=== PATIENT | female | born 1980 | race Caucasian/White ===

== ENCOUNTER 2020-02-15 21:30 | Inpatient (IN) | payer OTHER ==
[~2020-02-15] VITALS: Ht 157.5 cm; Wt 49.9 kg
[~2020-02-15 21:30] MED LIST: ABAC1TAB3 PO; Bisacodyl PO; DARU800T PO; Docusate Sodium PO; LACT10SO PO; METH5SOL PO; NORV1 PO
[2020-02-15] MEDS ORDERED: ACETAMINOPHEN 325MG TABLET PO STA (22:42)
[2020-02-16] MEDS ORDERED: VANCOMYCIN 1 G PREMIX 200 ML IV SCH
[2020-02-16] MEDS ORDERED: PIPERACILLIN/TAZOBACTAM 3.375GM/50ML PREMIX IV ONE
[2020-02-16 01:31] LABS: D-DIMER 3.23 mg/L FEU (<0.50); INR 0.9; PARTIAL THROMBOPLASTIN TIME 28.1 sec (23.4-31.0)
[2020-02-16 01:34] LABS: CHLORIDE 113 mEq/L (98-107)
[2020-02-16 01:44] LABS: CREATINE KINASE 28 IU/L (26-192)
[2020-02-16 02:16] LABS: BASOPHILS % 0.1 % (0.0-2.0); HEMATOCRIT. 25.4 % (36.0-48.0); HEMOGLOBIN. 8.1 g/dL (12.0-16.0); LYMPHOCYTES % 8.6 % (20.0-50.0); MEAN CORPUSCULAR HEMOGLOBIN 28.8 pg (28.0-32.0); MEAN CORPUSCULAR VOLUME 90.1 fL (81.0-99.0); MEAN PLATELET VOLUME 12.2 fl (7.4-10.4); MONOCYTES % 5.3 % (2.0-8.0); RED BLOOD CELL COUNT 2.82 mill/uL (4.2-5.4); RED CELL DISTRIBUTION WIDTH 21.3 % (11.6-14.6)
[2020-02-16 03:02] LABS: CLARITY URINE CLEAR (CLEAR); COLOR URINE YELLOW (YELLOW); KETONES URINE NEGATIVE (NEGATIVE); LEUKOCYTE ESTERASE URINE NEGATIVE (NEGATIVE); NITRITE URINE NEGATIVE (NEGATIVE); OCCULT BLOOD URINE NEGATIVE (NEGATIVE); PH URINE 5.5 (4.5-8.0); PROTEIN URINE 2+ (NEGATIVE); SPECIFIC GRAVITY URINE 1.015 (1.005-1.030)
[2020-02-16] MEDS ORDERED: CEFTRIAXONE 1 G PREMIX 50 ML IV SCH (09:00)
[2020-02-16] MEDS ORDERED: GUAIFENESIN 200MG/10ML SUGAR FREE UDC PO PRN (09:15)
[2020-02-16] MEDS ORDERED: ONDANSETRON HCL 4MG/2ML INJ IV PRN (09:15)
[2020-02-16] MEDS ORDERED: DOCUSATE SODIUM 100MG CAPSULE PO PRN (09:15)
[2020-02-16] MEDS ORDERED: LORAZEPAM 2MG/ML CPJ IV PRN (09:15)
[2020-02-16] MEDS ORDERED: HYDROCODONE/ACETAMINOPHEN 5/325MG TABLET PO PRN (09:15)
[2020-02-16] MEDS ORDERED: AZITHROMYCIN 500 MG in DEXT 5% WATER 250 ML IV SCH ×3 (09:15)
[2020-02-16] MEDS ORDERED: CLONIDINE 0.1MG TABLET PO PRN (09:15)
[2020-02-16] MEDS ORDERED: MORPHINE SULFATE 2 MG/ML CPJ (NOT FOR IM USE) IV PRN (09:15)
[2020-02-16] MEDS ORDERED: MAGNESIUM/ALUMINUM HYDROXIDE/SIMETHICONE 30ML UDC PO PRN (09:15)
[2020-02-16] MEDS ORDERED: ENOXAPARIN 40MG/0.4ML SYR SUBCUT SCH (09:15)
[2020-02-16] MEDS ORDERED: IPRATROPIUM/ALBUTEROL 0.5-3(2.5)MG/3ML NEB NEB PRN (09:15)
[2020-02-16] MEDS ORDERED: NA PHOS,M-B/NA PHOS,DI-BA ENEMA 118ML PR PRN (09:15)
[2020-02-16] MEDS ORDERED: DIPHENHYDRAMINE 50MG/ML VIAL IV PRN (09:15)
[2020-02-16 11:43] LABS: PLATELET 26 x1000/uL (130-400)
[2020-02-16] MEDS ORDERED: CEFTRIAXONE 1 G PREMIX 50 ML IV ONE (15:00)
[2020-02-16] MEDS: METHADONE HCL 10MG TABLET PO SCH (16:00)
[2020-02-16 20:10] VITALS: BP 97/61
[2020-02-16 20:19] VITALS: BP 96/56
[2020-02-16] MEDS: ALBUTEROL 6.7GM HFA INHALER ORI SCH (21:00)
[2020-02-16] MEDS: GUAIFENESIN 600MG ER TABLET PO SCH ×2 (21:00→21:50)
[2020-02-16] MEDS: CEFTRIAXONE 1 G PREMIX 50 ML IV SCH (21:51)
[2020-02-16] MEDS: AZITHROMYCIN 250 MG in DEXT 5% WATER 250 ML IV SCH (22:16)
[2020-02-17] VITALS (7 sets, daily range): BP systolic 80–99; BP diastolic 44–53
[2020-02-17] MEDS: ALBUTEROL 6.7GM HFA INHALER ORI SCH ×2 (03:00→09:00)
[2020-02-17 07:14] LABS: HEMATOCRIT. 24.1 % (36.0-48.0); HEMOGLOBIN. 7.9 g/dL (12.0-16.0); MEAN CORPUSCULAR HEMOGLOBIN 29.5 pg (28.0-32.0); RED BLOOD CELL COUNT 2.68 mill/uL (4.2-5.4); RED CELL DISTRIBUTION WIDTH 20.8 % (11.6-14.6)
[2020-02-17 07:31] LABS: CHLORIDE 109 mEq/L (98-107)
[2020-02-17 07:46] LABS: LDL CHOLESTEROL 19 mg/dL (5-100); T4 FREE 1.11 ng/dL (0.76-1.46)
[2020-02-17 07:47] LABS: HDL CHOLESTEROL 21 mg/dL (40-59)
[2020-02-17] MEDS: METHADONE HCL 10MG TABLET PO SCH (09:00)
[2020-02-17] MEDS ORDERED: ASPIRIN 81MG EC TABLET PO SCH (09:00)
[2020-02-17 09:06] LABS: ABSOLUTE LYMPHOCYTES 0.4 x10E3/uL (0.7-3.1); ABSOLUTE MONOCYTES 0.1 x10E3/uL (0.1-0.9); BASOPHILS 0 % (Not Estab.); HEMATOCRIT 27.3 % (34.0-46.6); HEMATOLOGY COMMENT Note: (.); HEMOGLOBIN 8.6 g/dL (11.1-15.9); LYMPHOCYTES 9 % (Not Estab.); MEAN CORPUSCULAR HEMOGLOBIN 28.6 pg (26.6-33.0); MEAN CORPUSCULAR HGB CONC. 31.5 g/dL (31.5-35.7); MEAN CORPUSCULAR VOLUME 91 fL (79-97); MONOCYTES 3 % (Not Estab.); NEUTROPHILS 80 % (Not Estab.); PLATELETS 37 x10E3/uL (150-450); RBC 3.01 x10E6/uL (3.77-5.28); RED CELL DISTRIBUTION WIDTH 21.2 % (11.7-15.4); WBC 4.6 x10E3/uL (3.4-10.8)
[2020-02-17 09:22] LABS: PLATELET 29 x1000/uL (130-400)
[2020-02-17] MEDS: GUAIFENESIN 600MG ER TABLET PO SCH ×2 (09:53→22:03)
[2020-02-17 10:47] LABS: PLATELET ESTIMATE MARKEDLY DECREASED
[2020-02-17 11:04] LABS: *BARBITURATES SCREEN URINE NEGATIVE (NEGATIVE); *BENZODIAZEPINES SCREEN URINE NEGATIVE (NEGATIVE)
[2020-02-17 11:05] LABS: *COCAINE SCREEN URINE NEGATIVE (NEGATIVE); CANNABINOID URINE SCREEN NEGATIVE (NEGATIVE); OPIATES URINE SCREEN NEGATIVE (NEGATIVE); PHENCYCLIDINE URINE SCREEN NEGATIVE (NEGATIVE)
[2020-02-17 11:20] LABS: *AMPHETAMINES SCREEN URINE PRESUMTIVE POSITIVE (NEGATIVE); METHADONE URINE SCREEN PRESUMTIVE POSITIVE (NEGATIVE)
[2020-02-17 14:09] LABS: % CD 3 POS. LYMPHOCYTES 78.1 % (57.5-86.2); % CD 4 POS. LYMPHOCYTES 4.9 % (30.8-58.5); % CD 8 POS. LYMPH 72.8 % (12.0-35.5); ABSOLUTE CD 3 312 /uL (622-2402); ABSOLUTE CD 4 HELPER 20 /uL (359-1519); ABSOLUTE CD 8 SUPPRESSOR 291 /uL (109-897); CD4/CD8 RATIO 0.07 (0.92-3.72)
[2020-02-17] MEDS: CEFTRIAXONE 1 G PREMIX 50 ML IV SCH (22:03)
[2020-02-17] MEDS: IPRATROPIUM/ALBUTEROL 0.5-3(2.5)MG/3ML NEB HHN SCH (22:08)
[2020-02-17] MEDS: AZITHROMYCIN 250 MG in DEXT 5% WATER 250 ML IV SCH (22:44)
[2020-02-18] MEDS: IPRATROPIUM/ALBUTEROL 0.5-3(2.5)MG/3ML NEB HHN SCH ×4 (02:27→21:20)
[2020-02-18 04:00] VITALS: BP 88/50
[2020-02-18 08:00] VITALS: BP 98/51
[2020-02-18] MEDS: METHADONE HCL 10MG TABLET PO SCH (09:28)
[2020-02-18] MEDS: GUAIFENESIN 600MG ER TABLET PO SCH ×2 (09:29→21:56)
[2020-02-18] MEDS: ACETAMINOPHEN 325MG TABLET PO PRN (09:31)
[2020-02-18 12:40] LABS: MEAN CORPUSCULAR HEMOGLOBIN 29.6 pg (28.0-32.0); MEAN CORPUSCULAR VOLUME 89.4 fL (81.0-99.0); MEAN PLATELET VOLUME 11.9 fl (7.4-10.4); RED BLOOD CELL COUNT 2.33 mill/uL (4.2-5.4); RED CELL DISTRIBUTION WIDTH 20.4 % (11.6-14.6)
[2020-02-18 12:45] LABS: HEMATOCRIT. 20.8 % (36.0-48.0); HEMOGLOBIN. 6.9 g/dL (12.0-16.0)
[2020-02-18 12:46] LABS: PLATELET 33 x1000/uL (130-400)
[2020-02-18 13:18] LABS: PLATELET ESTIMATE MARKEDLY DECREASED
[2020-02-18] MEDS: SODIUM CHLORIDE 0.9% 1,000 ML IV SCH (15:16)
[2020-02-18] MEDS: MIDODRINE HCL 2.5MG TABLET PO SCH ×2 (15:17→17:34)
[2020-02-18 16:00] VITALS: BP 96/51
[2020-02-18 20:00] VITALS: BP 86/46
[2020-02-18] MEDS ORDERED: SULFAMETHOXAZOLE/TRIMETHOPRIM 800/160MG TABLET PO SCH (21:00)
[2020-02-18] MEDS: CEFTRIAXONE 1 G PREMIX 50 ML IV SCH (21:57)
[2020-02-18] MEDS: AZITHROMYCIN 250 MG in DEXT 5% WATER 250 ML IV SCH (22:32)
[2020-02-19] VITALS (10 sets, daily range): BP systolic 91–111; BP diastolic 52–76
[2020-02-19] MEDS: SODIUM CHLORIDE 0.9% 1,000 ML IV SCH ×2 (00:09→13:01)
[2020-02-19] MEDS: IPRATROPIUM/ALBUTEROL 0.5-3(2.5)MG/3ML NEB HHN SCH ×4 (02:00→21:15)
[2020-02-19] MEDS: ACETAMINOPHEN 325MG TABLET PO PRN (05:09)
[2020-02-19 07:27] LABS: MEAN CORPUSCULAR HEMOGLOBIN 29.4 pg (28.0-32.0); MEAN CORPUSCULAR VOLUME 90.1 fL (81.0-99.0); MEAN PLATELET VOLUME 11.1 fl (7.4-10.4); RED CELL DISTRIBUTION WIDTH 20.1 % (11.6-14.6)
[2020-02-19 07:30] LABS: HEMATOCRIT. 20.7 % (36.0-48.0); HEMOGLOBIN. 6.8 g/dL (12.0-16.0); PLATELET 37 x1000/uL (130-400)
[2020-02-19] MEDS ORDERED: SODIUM POLYSTYRENE SULFONATE 15 G/60 ML BOT PO NR (08:15)
[2020-02-19] MEDS: GUAIFENESIN 600MG ER TABLET PO SCH ×2 (10:37→21:52)
[2020-02-19] MEDS: FLUCONAZOLE 100MG TABLET PO SCH (10:37)
[2020-02-19] MEDS: METHADONE HCL 10MG TABLET PO SCH (10:40)
[2020-02-19] MEDS: MIDODRINE HCL 2.5MG TABLET PO SCH ×3 (10:40→16:51)
[2020-02-19] MEDS: NYSTATIN 100,000 UNITS/ML 5ML UDC SSW SCH ×4 (10:41→21:52)
[2020-02-19 17:07] LABS: PLATELET ESTIMATE MARKEDLY DECREASED
[2020-02-19 18:49] LABS: HEMATOCRIT 25.8 % (36.0-48.0); HEMOGLOBIN 8.3 g/dL (12.0-16.0)
[2020-02-19] MEDS: CEFTRIAXONE 1 G PREMIX 50 ML IV SCH (21:53)
[2020-02-19] MEDS: AZITHROMYCIN 250 MG in DEXT 5% WATER 250 ML IV SCH (21:53)
[2020-02-20] MEDS: IPRATROPIUM/ALBUTEROL 0.5-3(2.5)MG/3ML NEB HHN SCH ×4 (00:38→22:01)
[2020-02-20 00:47] VITALS: BP 100/49
[2020-02-20] MEDS: SODIUM CHLORIDE 0.9% 1,000 ML IV SCH ×2 (04:39→16:52)
[2020-02-20 04:45] VITALS: BP 97/55
[2020-02-20 08:00] VITALS: BP 101/67
[2020-02-20 08:26] LABS: MEAN CORPUSCULAR HEMOGLOBIN 30.2 pg (28.0-32.0); MEAN CORPUSCULAR VOLUME 90.4 fL (81.0-99.0); MEAN PLATELET VOLUME 10.8 fl (7.4-10.4); RED BLOOD CELL COUNT 2.66 mill/uL (4.2-5.4)
[2020-02-20 08:41] LABS: PLATELET 46 x1000/uL (130-400)
[2020-02-20] MEDS: ATOVAQUONE 750MG/5ML PACKET PO SCH (08:58)
[2020-02-20] MEDS: GUAIFENESIN 600MG ER TABLET PO SCH ×2 (08:59→21:36)
[2020-02-20] MEDS: METHADONE HCL 10MG TABLET PO SCH (09:01)
[2020-02-20] MEDS: MIDODRINE HCL 2.5MG TABLET PO SCH ×3 (09:01→16:59)
[2020-02-20] MEDS: FLUCONAZOLE 100MG TABLET PO SCH (09:02)
[2020-02-20 12:00] VITALS: BP 98/59
[2020-02-20] MEDS: NYSTATIN 100,000 UNITS/ML 5ML UDC SSW SCH ×4 (12:47→21:36)
[2020-02-20 16:00] VITALS: BP 93/52
[2020-02-20 16:04] LABS: PLATELET ESTIMATE DECREASED
[2020-02-20 20:00] VITALS: BP 105/58
[2020-02-20] MEDS: CEFTRIAXONE 1 G PREMIX 50 ML IV SCH (21:36)
[2020-02-21] VITALS: BP 101/55
[2020-02-21 04:00] VITALS: BP 109/63
[2020-02-21] MEDS: IPRATROPIUM/ALBUTEROL 0.5-3(2.5)MG/3ML NEB HHN SCH ×3 (04:26→16:00)
[2020-02-21] MEDS: SODIUM CHLORIDE 0.9% 1,000 ML IV SCH ×2 (04:46→18:25)
[2020-02-21] MEDS: FLUCONAZOLE 100MG TABLET PO SCH (08:58)
[2020-02-21] MEDS: GUAIFENESIN 600MG ER TABLET PO SCH ×2 (08:58→20:36)
[2020-02-21] MEDS: NYSTATIN 100,000 UNITS/ML 5ML UDC SSW SCH ×4 (08:58→20:36)
[2020-02-21] MEDS: METHADONE HCL 10MG TABLET PO SCH (09:00)
[2020-02-21] MEDS: MIDODRINE HCL 2.5MG TABLET PO SCH ×3 (09:00→18:26)
[2020-02-21] MEDS: ATOVAQUONE 750MG/5ML PACKET PO SCH (09:03)
[2020-02-21 13:41] LABS: HEMATOCRIT. 23.5 % (36.0-48.0); HEMOGLOBIN. 7.8 g/dL (12.0-16.0); MEAN CORPUSCULAR VOLUME 90.9 fL (81.0-99.0); MEAN PLATELET VOLUME 9.3 fl (7.4-10.4); PLATELET 57 x1000/uL (130-400); RED BLOOD CELL COUNT 2.59 mill/uL (4.2-5.4); RED CELL DISTRIBUTION WIDTH 18.9 % (11.6-14.6)
[2020-02-21 14:19] LABS: PLATELET ESTIMATE DECREASED
[2020-02-21 20:00] VITALS: BP 112/65
[2020-02-21] MEDS: CEFTRIAXONE 1 G PREMIX 50 ML IV SCH (20:35)
[2020-02-21] MEDS: METRONIDAZOLE 500MG TABLET PO SCH (20:36)
[2020-02-22] VITALS: BP 125/76
[2020-02-22] MEDS: IPRATROPIUM/ALBUTEROL 0.5-3(2.5)MG/3ML NEB HHN SCH ×3 (00:44→20:58)
[2020-02-22 04:00] VITALS: BP 121/80
[2020-02-22 06:43] LABS: BASOPHILS % 0.4 % (0.0-2.0); EOSINOPHILS % 1.5 % (0.0-5.0); HEMATOCRIT. 26.9 % (36.0-48.0); HEMOGLOBIN. 8.8 g/dL (12.0-16.0); LYMPHOCYTES % 12.4 % (20.0-50.0); MEAN CORPUSCULAR HEMOGLOBIN 30.2 pg (28.0-32.0); MEAN CORPUSCULAR VOLUME 92.2 fL (81.0-99.0); MEAN PLATELET VOLUME 10.5 fl (7.4-10.4); MONOCYTES % 10.8 % (2.0-8.0); NEUTROPHILS % 74.9 % (40.0-76.0); PLATELET 69 x1000/uL (130-400); RED BLOOD CELL COUNT 2.91 mill/uL (4.2-5.4); RED CELL DISTRIBUTION WIDTH 19.4 % (11.6-14.6)
[2020-02-22] MEDS: ATOVAQUONE 750MG/5ML PACKET PO SCH (07:03)
[2020-02-22 08:00] VITALS: BP 116/76
[2020-02-22] MEDS: SODIUM CHLORIDE 0.9% 1,000 ML IV SCH ×2 (08:20→20:59)
[2020-02-22] MEDS: METRONIDAZOLE 500MG TABLET PO SCH ×2 (08:44→20:32)
[2020-02-22] MEDS: GUAIFENESIN 600MG ER TABLET PO SCH (08:44)
[2020-02-22] MEDS: MIDODRINE HCL 2.5MG TABLET PO SCH ×3 (08:45→17:00)
[2020-02-22] MEDS: NYSTATIN 100,000 UNITS/ML 5ML UDC SSW SCH ×4 (10:35→20:32)
[2020-02-22 12:00] VITALS: BP 124/81
[2020-02-22] MEDS: CITRIC ACID/SODIUM CITRATE SOLN 30ML UDC PO SCH ×2 (12:59→17:43)
[2020-02-22] MEDS ORDERED: SODIUM POLYSTYRENE SULFONATE 15 G/60 ML BOT PO SCH (13:00)
[2020-02-22] MEDS: METHADONE HCL 10MG TABLET PO SCH (15:20)
[2020-02-22 16:00] VITALS: BP 120/80
[2020-02-22] MEDS: CEFTRIAXONE 1 G PREMIX 50 ML IV SCH (20:32)
[2020-02-22] MEDS: ACETYLCYSTEINE 100MG/ML 10% VIAL 4ML INH SCH ×2 (20:32→20:58)
[2020-02-23] VITALS: BP 118/78
[2020-02-23] MEDS: IPRATROPIUM/ALBUTEROL 0.5-3(2.5)MG/3ML NEB HHN SCH ×4 (02:33→21:32)
[2020-02-23 04:06] LABS: AMPHETAMINE CONF URINE Positive (.)
[2020-02-23 08:30] VITALS: BP 119/59
[2020-02-23] MEDS: ACETYLCYSTEINE 100MG/ML 10% VIAL 4ML INH SCH (08:53)
[2020-02-23] MEDS: ATOVAQUONE 750MG/5ML PACKET PO SCH (08:57)
[2020-02-23] MEDS: METHADONE HCL 10MG TABLET PO SCH (08:59)
[2020-02-23] MEDS: CITRIC ACID/SODIUM CITRATE SOLN 30ML UDC PO SCH ×3 (08:59→16:32)
[2020-02-23] MEDS: METRONIDAZOLE 500MG TABLET PO SCH ×2 (09:00→20:59)
[2020-02-23] MEDS: MIDODRINE HCL 2.5MG TABLET PO SCH ×3 (09:00→16:29)
[2020-02-23] MEDS: NYSTATIN 100,000 UNITS/ML 5ML UDC SSW SCH ×4 (09:19→20:59)
[2020-02-23 11:18] LABS: HEMATOCRIT. 25.4 % (36.0-48.0); HEMOGLOBIN. 8.4 g/dL (12.0-16.0); MEAN CORPUSCULAR HEMOGLOBIN 30.1 pg (28.0-32.0); MEAN PLATELET VOLUME 9.5 fl (7.4-10.4); PLATELET 58 x1000/uL (130-400); RED BLOOD CELL COUNT 2.79 mill/uL (4.2-5.4); RED CELL DISTRIBUTION WIDTH 18.7 % (11.6-14.6)
[2020-02-23 12:00] VITALS: BP 112/60
[2020-02-23 12:17] LABS: ATYPICAL LYMPHOCYTES 2; PLATELET ESTIMATE DECREASED
[2020-02-23] MEDS: SODIUM CHLORIDE 0.9% 1,000 ML IV SCH (12:36)
[2020-02-23 16:07] VITALS: BP 116/78
[2020-02-23] MEDS ORDERED: SODIUM CHLORIDE 10% FOR INH 15ML VIAL NEB INH SCH (18:00)
[2020-02-23 20:00] VITALS: BP 125/78
[2020-02-23] MEDS: CEFTRIAXONE 1 G PREMIX 50 ML IV SCH (20:59)
[2020-02-24] VITALS: BP 117/62
[2020-02-24] MEDS: IPRATROPIUM/ALBUTEROL 0.5-3(2.5)MG/3ML NEB HHN SCH ×3 (01:44→15:35)
[2020-02-24] MEDS: SODIUM CHLORIDE 0.9% 1,000 ML IV SCH (02:16)
[2020-02-24 04:00] VITALS: BP 129/78
[2020-02-24 08:00] VITALS: BP 111/76
[2020-02-24] MEDS: ACETYLCYSTEINE 100MG/ML 10% VIAL 4ML INH SCH (08:57)
[2020-02-24] MEDS: CITRIC ACID/SODIUM CITRATE SOLN 30ML UDC PO SCH ×2 (09:21→12:17)
[2020-02-24] MEDS: MIDODRINE HCL 2.5MG TABLET PO SCH ×2 (09:21→12:16)
[2020-02-24] MEDS: NYSTATIN 100,000 UNITS/ML 5ML UDC SSW SCH ×2 (09:21→12:16)
[2020-02-24] MEDS: METRONIDAZOLE 500MG TABLET PO SCH (09:21)
[2020-02-24] MEDS: METHADONE HCL 10MG TABLET PO SCH (09:40)
[2020-02-24] MEDS: ATOVAQUONE 750MG/5ML PACKET PO SCH (09:42)
[2020-02-24 10:14] LABS: HEMOGLOBIN 8.4 g/dL (12.0-16.0); MEAN CORPUSCULAR HEMOGLOBIN 29.3 pg (28.0-32.0); MEAN CORPUSCULAR VOLUME 90.6 fL (81.0-99.0); PLATELET 57 x1000/uL (130-400); RED BLOOD CELL COUNT 2.87 mill/uL (4.2-5.4); RED CELL DISTRIBUTION WIDTH 18.9 % (11.6-14.6)
[2020-02-24 12:00] VITALS: BP 111/72
[2020-02-24 15:30] VITALS: BP 111/72
[2020-02-26] MEDS ORDERED: FLUCONAZOLE 100MG TABLET PO SCH (09:00)
[2020-02-26] MEDS ORDERED: AZITHROMYCIN 500 MG TABLET PO SCH (09:00)
== END 2020-02-24 16:08 | disposition home or self-care (01) | DRG 890 ==
LOC: ER 21:30 → EDBEDREQSVC 02-16 00:08 → EDBEDREQDT 02-16 00:08 → EDBEDREQ 02-16 00:08 → EDBEDREQTM 02-16 00:08 → ENRESERV 02-16 15:32 → 7EST 02-16 20:08 → 5WST 02-17 11:54
PROVIDERS: ADMIT Internal Medicine; ATTEND Emergency Medicine
PROC: 30233N1 Transfusion of Nonautologous Red Blood Cells into Peripheral Vein, Percutaneous Approach (ICD-10-PCS; principal; 2020-02-19)
DX: A41.9 Sepsis, unspecified organism (principal); B20 Human immunodeficiency virus [HIV] disease; J96.00 Acute respiratory failure, unspecified whether with hypoxia or hypercapnia; N17.0 Acute kidney failure with tubular necrosis; E46 Unspecified protein-calorie malnutrition; B37.0 Candidal stomatitis; N18.6 End stage renal disease; J18.9 Pneumonia, unspecified organism; D69.6 Thrombocytopenia, unspecified; E87.2 Acidosis; F11.20 Opioid dependence, uncomplicated; I10 Essential (primary) hypertension; N28.1 Cyst of kidney, acquired; L97.219 Non-pressure chronic ulcer of right calf with unspecified severity; E87.5 Hyperkalemia; Z20.828 Contact with and (suspected) exposure to other viral communicable diseases; D63.8 Anemia in other chronic diseases classified elsewhere; F15.10 Other stimulant abuse, uncomplicated; D72.810 Lymphocytopenia; G40.909 Epilepsy, unspecified, not intractable, without status epilepticus; E03.9 Hypothyroidism, unspecified; K59.00 Constipation, unspecified; T50.996A Underdosing of other drugs, medicaments and biological substances, initial encounter; Y92.89 Other specified places as the place of occurrence of the external cause; Z79.899 Other long term (current) drug therapy; Z68.20 Body mass index [BMI] 20.0-20.9, adult
CPT/HCPCS: 36415; 71045; 76770; 80048; 80053; 80061; 80305; 80307; 80358; 81003; 82550; 82728; 83605; 83615; 84145; 84439; 84443; 84484; 85014; 85018; 85025; 85027; 85049; 85379; 86140; 86359; 86360; 86850; 86900; 86920; 87804; 93005; 94640; 99291; J0456; J0696; J2405; J2543; J3370; J7030; J7060; J7131; J7608; P9016; U0003

== ENCOUNTER 2020-03-31 07:17 | Inpatient (IN) | payer OTHER ==
[~2020-03-31] VITALS: Ht 160 cm; Wt 64.0 kg
[2020-03-31] MEDS ORDERED: CEFTRIAXONE 1 G PREMIX 50 ML IV ONE (08:00)
[2020-03-31] MEDS ORDERED: AZITHROMYCIN 500 MG in DEXT 5% WATER 250 ML IV ONE (08:00)
[2020-03-31 08:21] LABS: BG BASE EXCESS -12.4 mmol/L (-2.0-2.0); BG CARBOXYHEMOGLOBIN 0.3 % (0.5-1.5); BG DEOXYHEMOGLOBIN 6.6 % (0.0-5.0); BG HCO3 ACT 12.5 mmol/L (22.0-26.0); BG METHEMOGLOBIN 0.3 % (0.0-1.5); BG OXYGEN SATURATION 93.4 % (92.0-98.5); BG OXYHEMOGLOBIN 92.8 % (94.0-97.0); BG PCO2 25.9 mmHg (35.0-45.0); BG PH 7.302 (7.350-7.450); BG PO2 74.6 mmHg (75.0-100.0); BG SAMPLE SITE RIGHT RADIAL; BG TOTAL HEMOGLOBIN 10.1 g/dL (12.0-18.0); BG VENT MODE NASAL CANNULA
[2020-03-31 09:24] LABS: BASOPHILS % 0.3 % (0.0-2.0); EOSINOPHILS % 0.4 % (0.0-5.0); HEMATOCRIT. 25.3 % (36.0-48.0); HEMOGLOBIN. 8.4 g/dL (12.0-16.0); LYMPHOCYTES % 11.2 % (20.0-50.0); MEAN CORPUSCULAR HEMOGLOBIN 33.2 pg (28.0-32.0); MEAN CORPUSCULAR VOLUME 99.5 fL (81.0-99.0); MEAN PLATELET VOLUME 10.2 fl (7.4-10.4); MONOCYTES % 6.6 % (2.0-8.0); NEUTROPHILS % 81.5 % (40.0-76.0); PLATELET 114 x1000/uL (130-400); RED BLOOD CELL COUNT 2.54 mill/uL (4.2-5.4); RED CELL DISTRIBUTION WIDTH 22.5 % (11.6-14.6)
[2020-03-31 09:28] LABS: CHLORIDE 115 mEq/L (98-107)
[2020-03-31 09:31] LABS: PROTHROMBIN TIME 10.5 sec (9.6-11.0)
[2020-03-31] MEDS ORDERED: ENOXAPARIN 80MG/0.8ML SYR SUBCUT ONE (10:15)
[2020-03-31] MEDS ORDERED: ASPIRIN 325MG EC TABLET PO ONE (10:15)
[2020-03-31 10:27] LABS: PLATELET ESTIMATE DECREASED
[2020-03-31] MEDS ORDERED: LORAZEPAM 1MG TABLET ONE (12:14)
[2020-03-31] MEDS ORDERED: LORAZEPAM 1MG TABLET PO ONE (12:15)
[2020-03-31] MEDS ORDERED: LORAZEPAM 2MG/ML CPJ IV ONE ×2 (12:30→13:15)
[2020-03-31] MEDS ORDERED: LORAZEPAM 2MG/ML CPJ ONE (12:33)
[2020-03-31] MEDS ORDERED: SUCCINYLCHOLINE CHLORIDE 200MG/10ML IV ONE (13:30)
[2020-03-31] MEDS ORDERED: MIDAZOLAM HCL 2 MG/2 ML VIAL IV ONE (13:30)
[2020-03-31] MEDS ORDERED: ETOMIDATE 2MG/ML 10ML VIAL IV ONE (13:30)
[2020-03-31] MEDS ORDERED: MIDAZOLAM HCL 50 MG in DEXTROSE 5% WATER 40 ML IV ONE (13:30)
[2020-03-31] MEDS ORDERED: ENOXAPARIN 40MG/0.4ML SYR SUBCUT SCH (14:15)
[2020-03-31] MEDS ORDERED: DIPHENHYDRAMINE 50MG/ML VIAL IV PRN (14:15)
[2020-03-31] MEDS ORDERED: ACETAMINOPHEN 325MG TABLET PO PRN (14:15)
[2020-03-31] MEDS ORDERED: DOCUSATE SODIUM 100MG CAPSULE PO PRN (14:15)
[2020-03-31] MEDS ORDERED: ONDANSETRON HCL 4MG/2ML INJ IV PRN (14:15)
[2020-03-31] MEDS ORDERED: GUAIFENESIN 200MG/10ML SUGAR FREE UDC PO PRN (14:15)
[2020-03-31] MEDS ORDERED: MAGNESIUM/ALUMINUM HYDROXIDE/SIMETHICONE 30ML UDC PO PRN (14:15)
[2020-03-31] MEDS ORDERED: CLONIDINE 0.1MG TABLET PO PRN (14:15)
[2020-03-31] MEDS ORDERED: HYDROCODONE/ACETAMINOPHEN 10/325MG TABLET PO PRN (14:15)
[2020-03-31] MEDS ORDERED: MORPHINE SULFATE 2 MG/ML CPJ (NOT FOR IM USE) IV PRN (14:15)
[2020-03-31] MEDS ORDERED: IPRATROPIUM/ALBUTEROL 0.5-3(2.5)MG/3ML NEB HHN PRN (14:15)
[2020-03-31] MEDS ORDERED: DEXTROSE 50% WATER 50ML SYRINGE IV PRN (14:15)
[2020-03-31 14:21] LABS: BG CARBOXYHEMOGLOBIN 0.3 % (0.5-1.5); BG DEOXYHEMOGLOBIN 7.8 % (0.0-5.0); BG HCO3 ACT 10.6 mmol/L (22.0-26.0); BG METHEMOGLOBIN 0.3 % (0.0-1.5); BG OXYGEN SATURATION 92.2 % (92.0-98.5); BG OXYHEMOGLOBIN 91.6 % (94.0-97.0); BG PCO2 40.1 mmHg (35.0-45.0); BG PH 7.041 (7.350-7.450); BG PO2 88.2 mmHg (75.0-100.0); BG SAMPLE SITE RIGHT RADIAL; BG TIDAL VOLUME(mL) 450 mL; BG TOTAL HEMOGLOBIN 9.9 g/dL (12.0-18.0); BG VENT MODE VENT - A/C; BG VENT RATE 14 set
[2020-03-31] MEDS ORDERED: SODIUM BICARBONATE 8.4% 1 MEQ/ML 50ML SYR IV ONE (14:45)
[2020-03-31] MEDS: MIDAZOLAM HCL 100 MG in DEXT 5% WATER 80 ML IV PRN ×2 (16:14→22:20)
[2020-03-31 16:29] LABS: CLARITY URINE CLOUDY (CLEAR); COLOR URINE YELLOW (YELLOW); KETONES URINE NEGATIVE (NEGATIVE); LEUKOCYTE ESTERASE URINE NEGATIVE (NEGATIVE); NITRITE URINE NEGATIVE (NEGATIVE); OCCULT BLOOD URINE NEGATIVE (NEGATIVE); PH URINE 5.5 (4.5-8.0); PROTEIN URINE 2+ (NEGATIVE); SPECIFIC GRAVITY URINE 1.014 (1.005-1.030)
[2020-03-31] MEDS ORDERED: LORAZEPAM 2MG/ML CPJ IV NR (20:07)
[2020-04-01] VITALS (25 sets, daily range): BP systolic 100–128; BP diastolic 56–83
[2020-04-01 06:04] LABS: CHLORIDE 115 mEq/L (98-107)
[2020-04-01 06:05] LABS: BASOPHILS % 0.7 % (0.0-2.0); EOSINOPHILS % 1.3 % (0.0-5.0); HEMATOCRIT. 26.7 % (36.0-48.0); HEMOGLOBIN. 8.9 g/dL (12.0-16.0); LYMPHOCYTES % 10.5 % (20.0-50.0); MEAN CORPUSCULAR HEMOGLOBIN 32.7 pg (28.0-32.0); MEAN CORPUSCULAR VOLUME 98.3 fL (81.0-99.0); MEAN PLATELET VOLUME 10.4 fl (7.4-10.4); MONOCYTES % 12.7 % (2.0-8.0); NEUTROPHILS % 74.8 % (40.0-76.0); PLATELET 102 x1000/uL (130-400); RED BLOOD CELL COUNT 2.72 mill/uL (4.2-5.4); RED CELL DISTRIBUTION WIDTH 22.3 % (11.6-14.6)
[2020-04-01] MEDS ORDERED: CEFTRIAXONE 1 G PREMIX 50 ML IV SCH (08:00)
[2020-04-01] MEDS ORDERED: AZITHROMYCIN 500 MG in DEXT 5% WATER 250 ML IV SCH (08:00)
[2020-04-01] MEDS: FENTANYL CITRATE/PF 1,000 MCG in SODIUM CHLORIDE 0.9% 80 ML IV PRN ×2 (08:19→15:00)
[2020-04-01] MEDS: SODIUM CHLORIDE 0.9% INJ 3ML FLUSH IVF SCH ×3 (08:19→21:21)
[2020-04-01 09:42] LABS: BG BASE EXCESS -10.6 mmol/L (-2.0-2.0); BG CARBOXYHEMOGLOBIN 0.3 % (0.5-1.5); BG DEOXYHEMOGLOBIN 9.3 % (0.0-5.0); BG FRACTION INSPIRED OXYGEN 100; BG HCO3 ACT 14.3 mmol/L (22.0-26.0); BG METHEMOGLOBIN 0.1 % (0.0-1.5); BG OXYGEN SATURATION 90.7 % (92.0-98.5); BG OXYHEMOGLOBIN 90.3 % (94.0-97.0); BG PCO2 28.1 mmHg (35.0-45.0); BG PH 7.324 (7.350-7.450); BG PO2 65.1 mmHg (75.0-100.0); BG SAMPLE SITE RIGHT RADIAL; BG TIDAL VOLUME(mL) 450 mL; BG TOTAL HEMOGLOBIN 8.9 g/dL (12.0-18.0); BG VENT MODE VENT - A/C; BG VENT RATE 14 set
[2020-04-01 10:10] LABS: LDL CHOLESTEROL 61 mg/dL (5-100)
[2020-04-01 10:12] LABS: HDL CHOLESTEROL 29 mg/dL (40-59)
[2020-04-01 10:13] LABS: T4 FREE 0.92 ng/dL (0.76-1.46)
[2020-04-01 10:54] LABS: *BARBITURATES SCREEN URINE NEGATIVE (NEGATIVE); *BENZODIAZEPINES SCREEN URINE NEGATIVE (NEGATIVE); *COCAINE SCREEN URINE NEGATIVE (NEGATIVE)
[2020-04-01 10:55] LABS: CANNABINOID URINE SCREEN NEGATIVE (NEGATIVE); OPIATES URINE SCREEN NEGATIVE (NEGATIVE); PHENCYCLIDINE URINE SCREEN NEGATIVE (NEGATIVE)
[2020-04-01 10:58] LABS: *AMPHETAMINES SCREEN URINE PRESUMTIVE POSITIVE (NEGATIVE)
[2020-04-01 10:59] LABS: METHADONE URINE SCREEN PRESUMTIVE POSITIVE (NEGATIVE)
[2020-04-01] MEDS ORDERED: MEROPENEM 1,000 MG in SODIUM CHLORIDE 0.9% 100 ML IV SCH (14:15)
[2020-04-01] MEDS: ENOXAPARIN 30MG/0.3ML SYR SUBCUT SCH (15:00)
[2020-04-01] MEDS: MIDAZOLAM HCL 100 MG in DEXT 5% WATER 80 ML IV PRN ×2 (15:01→22:38)
[2020-04-01] MEDS ORDERED: MEROPENEM 500MG in NORMAL SALINE 50ML IV SCH (16:00)
[2020-04-01] MEDS: ATOVAQUONE 750 MG/5 ML ORAL.SUSP PO SCH (17:37)
[2020-04-01] MEDS: SODIUM CHLORIDE 0.9% 1,000 ML IV SCH (17:37)
[2020-04-01 18:29] LABS: PHOSPHORUS 5.3 mg/dL (2.5-4.9)
[2020-04-01 18:33] LABS: CREATINE KINASE MB FRACTION 7.1 ng/mL (0.5-3.6)
[2020-04-01 19:31] LABS: CLARITY URINE CLEAR (CLEAR); COLOR URINE YELLOW (YELLOW); KETONES URINE TRACE (NEGATIVE); LEUKOCYTE ESTERASE URINE NEGATIVE (NEGATIVE); NITRITE URINE NEGATIVE (NEGATIVE); OCCULT BLOOD URINE 2+ (NEGATIVE); PH URINE 5.5 (4.5-8.0); PROTEIN URINE 1+ (NEGATIVE); SPECIFIC GRAVITY URINE 1.014 (1.005-1.030); UROBILINOGEN URINE 0.2 E.U./dL (0.2-1.0)
[2020-04-01] MEDS: IPRATROPIUM/ALBUTEROL 0.5-3(2.5)MG/3ML NEB HHN SCH (20:47)
[2020-04-01] MEDS: METRONIDAZOLE 500MG TABLET PO SCH (21:22)
[2020-04-01] MEDS: DOXYCYCLINE HYCLATE 100MG CAPSULE PO SCH (21:22)
[2020-04-01] MEDS: LORAZEPAM 2MG/ML CPJ IV PRN (21:54)
[2020-04-02] VITALS (47 sets, daily range): BP systolic 91–124; BP diastolic 49–76
[2020-04-02] MEDS: FENTANYL CITRATE/PF 1,000 MCG in SODIUM CHLORIDE 0.9% 80 ML IV PRN ×3 (00:14→23:44)
[2020-04-02] MEDS: IPRATROPIUM/ALBUTEROL 0.5-3(2.5)MG/3ML NEB HHN SCH ×4 (02:02→20:46)
[2020-04-02] MEDS: SODIUM CHLORIDE 0.9% 1,000 ML IV SCH ×2 (02:13→05:36)
[2020-04-02] MEDS: LORAZEPAM 2MG/ML CPJ IV PRN (04:54)
[2020-04-02] MEDS: SODIUM CHLORIDE 0.9% INJ 3ML FLUSH IVF SCH ×3 (05:36→21:06)
[2020-04-02 05:50] LABS: HEMATOCRIT. 26.7 % (36.0-48.0); HEMOGLOBIN. 8.8 g/dL (12.0-16.0); MEAN CORPUSCULAR HEMOGLOBIN 33.2 pg (28.0-32.0); MEAN CORPUSCULAR VOLUME 101.3 fL (81.0-99.0); MEAN PLATELET VOLUME 9.8 fl (7.4-10.4); PLATELET 103 x1000/uL (130-400); RED BLOOD CELL COUNT 2.64 mill/uL (4.2-5.4); RED CELL DISTRIBUTION WIDTH 22.9 % (11.6-14.6)
[2020-04-02 06:19] LABS: CREATINE KINASE MB FRACTION 7.1 ng/mL (0.5-3.6)
[2020-04-02 06:37] LABS: HEPATITIS B SURFACE ANTIGEN NEGATIVE
[2020-04-02 06:51] LABS: BG CARBOXYHEMOGLOBIN 0.6 % (0.5-1.5); BG DEOXYHEMOGLOBIN 0.8 % (0.0-5.0); BG FRACTION INSPIRED OXYGEN 70; BG HCO3 ACT 14.2 mmol/L (22.0-26.0); BG METHEMOGLOBIN 0.2 % (0.0-1.5); BG OXYGEN SATURATION 99.2 % (92.0-98.5); BG OXYHEMOGLOBIN 98.4 % (94.0-97.0); BG PCO2 33.6 mmHg (35.0-45.0); BG PH 7.245 (7.350-7.450); BG PO2 187.4 mmHg (75.0-100.0); BG SAMPLE SITE RIGHT RADIAL; BG TIDAL VOLUME(mL) 450 mL; BG TOTAL HEMOGLOBIN 8.1 g/dL (12.0-18.0); BG VENT MODE VENT - A/C; BG VENT RATE 14 set
[2020-04-02] MEDS ORDERED: SODIUM BICARBONATE 8.4% 1 MEQ/ML 50ML SYR IV NR (07:00)
[2020-04-02] MEDS: CEFEPIME 1,000 MG in DEXTROSE 5% WATER 50 ML IV SCH (08:30)
[2020-04-02] MEDS: PANTOPRAZOLE SODIUM 40 MG/VIAL IV SCH (08:30)
[2020-04-02] MEDS: METRONIDAZOLE 500MG TABLET PO SCH ×2 (08:31→21:06)
[2020-04-02] MEDS: DOXYCYCLINE HYCLATE 100MG CAPSULE PO SCH ×2 (08:31→21:06)
[2020-04-02] MEDS: ENOXAPARIN 30MG/0.3ML SYR SUBCUT SCH (08:32)
[2020-04-02] MEDS ORDERED: CEFTRIAXONE 1 G PREMIX 50 ML IV SCH (09:00)
[2020-04-02] MEDS ORDERED: AZITHROMYCIN 500 MG in DEXT 5% WATER 250 ML IV SCH (09:00)
[2020-04-02] MEDS ORDERED: LIDOCAINE HCL 1% 20ML VIAL (Pyxis) INJ ONE (09:39)
[2020-04-02] MEDS ORDERED: SODIUM BICARBONATE 4% (2.4MEQ) 5ML VIAL IV ONE (09:39)
[2020-04-02 10:11] LABS: ATYPICAL LYMPHOCYTES 1
[2020-04-02 10:13] LABS: PLATELET ESTIMATE SLIGHTLY DECREASED
[2020-04-02] MEDS ORDERED: LORAZEPAM 2MG/ML CPJ IV PRN (10:30)
[2020-04-02] MEDS: QUETIAPINE FUMARATE 50MG TABLET PO SCH ×2 (10:48→21:06)
[2020-04-02] MEDS: MIDAZOLAM HCL 100 MG in DEXT 5% WATER 80 ML IV PRN ×2 (11:54→23:45)
[2020-04-02] MEDS: SODIUM BICARBONATE 650 MG TABLET PO SCH ×2 (14:29→17:35)
[2020-04-02] MEDS: ATOVAQUONE 750 MG/5 ML ORAL.SUSP PO SCH (21:00)
[2020-04-03] VITALS (49 sets, daily range): BP systolic 107–139; BP diastolic 57–93
[2020-04-03] MEDS: SODIUM CHLORIDE 0.9% 1,000 ML IV SCH (01:21)
[2020-04-03] MEDS: IPRATROPIUM/ALBUTEROL 0.5-3(2.5)MG/3ML NEB HHN SCH ×4 (04:23→20:28)
[2020-04-03 06:04] LABS: HEMATOCRIT. 22.6 % (36.0-48.0); HEMOGLOBIN. 7.7 g/dL (12.0-16.0); MEAN CORPUSCULAR HEMOGLOBIN 33.4 pg (28.0-32.0); MEAN CORPUSCULAR VOLUME 98.9 fL (81.0-99.0); MEAN PLATELET VOLUME 9.7 fl (7.4-10.4); PLATELET 90 x1000/uL (130-400); RED BLOOD CELL COUNT 2.29 mill/uL (4.2-5.4); RED CELL DISTRIBUTION WIDTH 22.2 % (11.6-14.6)
[2020-04-03] MEDS: SODIUM CHLORIDE 0.9% INJ 3ML FLUSH IVF SCH ×3 (06:43→22:00)
[2020-04-03] MEDS: ENOXAPARIN 30MG/0.3ML SYR SUBCUT SCH (09:00)
[2020-04-03] MEDS: PANTOPRAZOLE SODIUM 40 MG/VIAL IV SCH (09:02)
[2020-04-03] MEDS: METRONIDAZOLE 500MG TABLET PO SCH ×2 (09:02→21:00)
[2020-04-03] MEDS: QUETIAPINE FUMARATE 50MG TABLET PO SCH ×2 (09:02→21:00)
[2020-04-03] MEDS: DOXYCYCLINE HYCLATE 100MG CAPSULE PO SCH ×2 (09:02→21:00)
[2020-04-03] MEDS: SODIUM BICARBONATE 650 MG TABLET PO SCH ×3 (09:02→17:14)
[2020-04-03 09:11] LABS: BG BASE EXCESS -9.7 mmol/L (-2.0-2.0); BG CARBOXYHEMOGLOBIN 0.3 % (0.5-1.5); BG FRACTION INSPIRED OXYGEN 60; BG HCO3 ACT 15.8 mmol/L (22.0-26.0); BG METHEMOGLOBIN 0.5 % (0.0-1.5); BG OXYHEMOGLOBIN 98.2 % (94.0-97.0); BG PCO2 32.7 mmHg (35.0-45.0); BG PH 7.301 (7.350-7.450); BG PO2 241.9 mmHg (75.0-100.0); BG SAMPLE SITE RIGHT RADIAL; BG TIDAL VOLUME(mL) 450 mL; BG TOTAL HEMOGLOBIN 7.6 g/dL (12.0-18.0); BG VENT MODE VENT - A/C; BG VENT RATE 18 set
[2020-04-03 09:53] LABS: PLATELET ESTIMATE DECREASED
[2020-04-03] MEDS: CEFEPIME 1,000 MG in DEXTROSE 5% WATER 50 ML IV SCH (11:19)
[2020-04-03] MEDS: MIDAZOLAM HCL 100 MG in DEXT 5% WATER 80 ML IV PRN (16:42)
[2020-04-03] MEDS: FENTANYL CITRATE/PF 1,000 MCG in SODIUM CHLORIDE 0.9% 80 ML IV PRN (16:43)
[2020-04-03 17:16] LABS: CREATINE KINASE MB FRACTION 2.5 ng/mL (0.5-3.6)
[2020-04-03] MEDS ORDERED: ATOVAQUONE 750 MG/5 ML ORAL.SUSP PO SCH (18:00)
[2020-04-04] VITALS (48 sets, daily range): BP systolic 126–181; BP diastolic 43–124
[2020-04-04] MEDS: IPRATROPIUM/ALBUTEROL 0.5-3(2.5)MG/3ML NEB HHN SCH ×4 (03:15→19:59)
[2020-04-04 04:59] LABS: HEMATOCRIT. 23.1 % (36.0-48.0); HEMOGLOBIN. 7.7 g/dL (12.0-16.0); MEAN CORPUSCULAR HEMOGLOBIN 33.1 pg (28.0-32.0); MEAN CORPUSCULAR VOLUME 99.9 fL (81.0-99.0); MEAN PLATELET VOLUME 9.7 fl (7.4-10.4); PLATELET 97 x1000/uL (130-400); RED BLOOD CELL COUNT 2.31 mill/uL (4.2-5.4); RED CELL DISTRIBUTION WIDTH 22.7 % (11.6-14.6)
[2020-04-04] MEDS: SODIUM CHLORIDE 0.9% INJ 3ML FLUSH IVF SCH ×3 (06:17→21:14)
[2020-04-04] MEDS: FENTANYL CITRATE/PF 1,000 MCG in SODIUM CHLORIDE 0.9% 80 ML IV PRN (06:30)
[2020-04-04 07:29] LABS: PLATELET ESTIMATE DECREASED
[2020-04-04] MEDS: PANTOPRAZOLE SODIUM 40 MG/VIAL IV SCH (10:18)
[2020-04-04] MEDS: CEFEPIME 1,000 MG in DEXTROSE 5% WATER 50 ML IV SCH (10:18)
[2020-04-04] MEDS: QUETIAPINE FUMARATE 50MG TABLET PO SCH ×2 (10:18→20:50)
[2020-04-04] MEDS: SODIUM BICARBONATE 650 MG TABLET PO SCH ×3 (10:18→17:30)
[2020-04-04] MEDS: METRONIDAZOLE 500MG TABLET PO SCH ×2 (10:18→20:50)
[2020-04-04] MEDS: DOXYCYCLINE HYCLATE 100MG CAPSULE PO SCH ×2 (10:18→20:50)
[2020-04-04] MEDS: ENOXAPARIN 30MG/0.3ML SYR SUBCUT SCH (10:19)
[2020-04-04 10:37] LABS: BG BASE EXCESS -8.6 mmol/L (-2.0-2.0); BG CARBOXYHEMOGLOBIN 0.3 % (0.5-1.5); BG DEOXYHEMOGLOBIN 1.2 % (0.0-5.0); BG FRACTION INSPIRED OXYGEN 40; BG METHEMOGLOBIN 0.2 % (0.0-1.5); BG OXYGEN SATURATION 98.8 % (92.0-98.5); BG OXYHEMOGLOBIN 98.3 % (94.0-97.0); BG PCO2 29.4 mmHg (35.0-45.0); BG PH 7.354 (7.350-7.450); BG PO2 191.3 mmHg (75.0-100.0); BG SAMPLE SITE RIGHT RADIAL; BG TIDAL VOLUME(mL) 450 mL; BG TOTAL HEMOGLOBIN 8.2 g/dL (12.0-18.0); BG VENT MODE VENT - A/C; BG VENT RATE 18 set
[2020-04-04 12:38] LABS: BG BASE EXCESS -6.9 mmol/L (-2.0-2.0); BG CARBOXYHEMOGLOBIN 0.2 % (0.5-1.5); BG DEOXYHEMOGLOBIN 1.5 % (0.0-5.0); BG FRACTION INSPIRED OXYGEN 40; BG HCO3 ACT 17.6 mmol/L (22.0-26.0); BG METHEMOGLOBIN 0.6 % (0.0-1.5); BG OXYGEN SATURATION 98.5 % (92.0-98.5); BG OXYHEMOGLOBIN 97.7 % (94.0-97.0); BG PCO2 31.4 mmHg (35.0-45.0); BG PH 7.367 (7.350-7.450); BG PO2 196.3 mmHg (75.0-100.0); BG PRESSURE SUPPORT 8; BG SAMPLE SITE RIGHT RADIAL; BG TOTAL HEMOGLOBIN 8.5 g/dL (12.0-18.0); BG VENT MODE VENT - CPAP
[2020-04-04] MEDS: ATOVAQUONE 750 MG/5 ML ORAL.SUSP PO SCH (17:30)
[2020-04-05] VITALS (25 sets, daily range): BP systolic 110–147; BP diastolic 53–97
[2020-04-05] MEDS: IPRATROPIUM/ALBUTEROL 0.5-3(2.5)MG/3ML NEB HHN SCH ×4 (00:58→21:50)
[2020-04-05] MEDS: SODIUM CHLORIDE 0.9% INJ 3ML FLUSH IVF SCH ×3 (05:29→22:02)
[2020-04-05 07:00] LABS: HEMATOCRIT. 24.3 % (36.0-48.0); HEMOGLOBIN. 8.2 g/dL (12.0-16.0); MEAN CORPUSCULAR HEMOGLOBIN 33.3 pg (28.0-32.0); MEAN CORPUSCULAR VOLUME 98.6 fL (81.0-99.0); MEAN PLATELET VOLUME 9.6 fl (7.4-10.4); PLATELET 102 x1000/uL (130-400); RED BLOOD CELL COUNT 2.46 mill/uL (4.2-5.4); RED CELL DISTRIBUTION WIDTH 22.4 % (11.6-14.6)
[2020-04-05] MEDS: QUETIAPINE FUMARATE 50MG TABLET PO SCH (08:31)
[2020-04-05] MEDS: DOXYCYCLINE HYCLATE 100MG CAPSULE PO SCH ×2 (08:31→20:45)
[2020-04-05] MEDS: SODIUM BICARBONATE 650 MG TABLET PO SCH ×3 (08:31→16:57)
[2020-04-05] MEDS: PANTOPRAZOLE SODIUM 40 MG/VIAL IV SCH (08:31)
[2020-04-05] MEDS: ENOXAPARIN 30MG/0.3ML SYR SUBCUT SCH (08:31)
[2020-04-05] MEDS: METRONIDAZOLE 500MG TABLET PO SCH ×2 (08:31→20:45)
[2020-04-05] MEDS: CEFEPIME 1,000 MG in DEXTROSE 5% WATER 50 ML IV SCH (08:31)
[2020-04-05] MEDS: METHADONE HCL 10MG TABLET PO SCH (11:31)
[2020-04-05 11:55] LABS: PLATELET ESTIMATE SLIGHTLY DECREASED
[2020-04-05] MEDS: ATOVAQUONE 750 MG/5 ML ORAL.SUSP PO SCH (16:57)
[2020-04-06] VITALS: BP 145/106
[2020-04-06] MEDS: IPRATROPIUM/ALBUTEROL 0.5-3(2.5)MG/3ML NEB HHN SCH ×3 (01:15→13:11)
[2020-04-06 04:00] VITALS: BP 137/105
[2020-04-06] MEDS: SODIUM CHLORIDE 0.9% INJ 3ML FLUSH IVF SCH ×3 (05:47→22:42)
[2020-04-06 06:15] LABS: MEAN CORPUSCULAR HEMOGLOBIN 32.8 pg (28.0-32.0); MEAN CORPUSCULAR VOLUME 98.9 fL (81.0-99.0); MEAN PLATELET VOLUME 10.1 fl (7.4-10.4); PLATELET 117 x1000/uL (130-400); RED BLOOD CELL COUNT 2.91 mill/uL (4.2-5.4); RED CELL DISTRIBUTION WIDTH 22.4 % (11.6-14.6)
[2020-04-06 06:40] LABS: HEMOGLOBIN. 9.5 g/dL (12.0-16.0)
[2020-04-06 06:46] LABS: HEMATOCRIT. 28.8 % (36.0-48.0)
[2020-04-06 08:00] VITALS: BP 151/89
[2020-04-06] MEDS: DOXYCYCLINE HYCLATE 100MG CAPSULE PO SCH ×2 (09:22→20:56)
[2020-04-06] MEDS: METRONIDAZOLE 500MG TABLET PO SCH ×2 (09:22→20:56)
[2020-04-06] MEDS: SODIUM BICARBONATE 650 MG TABLET PO SCH ×3 (09:22→17:11)
[2020-04-06] MEDS: ENOXAPARIN 30MG/0.3ML SYR SUBCUT SCH (09:23)
[2020-04-06] MEDS: PANTOPRAZOLE SODIUM 40 MG/VIAL IV SCH (09:23)
[2020-04-06] MEDS: CEFEPIME 1,000 MG in DEXTROSE 5% WATER 50 ML IV SCH (11:00)
[2020-04-06] MEDS: METHADONE HCL 10MG TABLET PO SCH (11:02)
[2020-04-06 12:00] VITALS: BP 145/107
[2020-04-06 13:23] LABS: PLATELET ESTIMATE SLIGHTLY DECREASED
[2020-04-06 16:00] VITALS: BP 127/92
[2020-04-06] MEDS: ATOVAQUONE 750 MG/5 ML ORAL.SUSP PO SCH (17:24)
[2020-04-06] MEDS ORDERED: DOLU50TA MT (18:06)
[2020-04-06] MEDS ORDERED: ATAZ300C MT (18:06)
[2020-04-06 20:00] VITALS: BP 116/82
[2020-04-06] MEDS: LAMIVUDINE PO SCH (22:42)
[2020-04-06] MEDS: ABACAVIR PO SCH (22:42)
[2020-04-06] MEDS: TIVICAY (DOLUTEGRAVIR) 50MG TABLET PO SCH (22:42)
[2020-04-06] MEDS: NORVIR 100 MG PO SCH (22:42)
[2020-04-06] MEDS: REYATAZ 300 MG PO SCH (22:42)
[2020-04-07] VITALS: BP 113/78
[2020-04-07 04:00] VITALS: BP 118/82
[2020-04-07] MEDS: SODIUM CHLORIDE 0.9% INJ 3ML FLUSH IVF SCH ×2 (06:10→13:29)
[2020-04-07 08:00] VITALS: BP 113/76
[2020-04-07] MEDS: IPRATROPIUM/ALBUTEROL 0.5-3(2.5)MG/3ML NEB HHN SCH ×3 (08:36→21:48)
[2020-04-07] MEDS: CEFEPIME 1,000 MG in DEXTROSE 5% WATER 50 ML IV SCH (09:07)
[2020-04-07] MEDS: PANTOPRAZOLE SODIUM 40 MG/VIAL IV SCH (09:07)
[2020-04-07] MEDS: METHADONE HCL 10MG TABLET PO SCH (09:10)
[2020-04-07] MEDS: TIVICAY (DOLUTEGRAVIR) 50MG TABLET PO SCH (09:10)
[2020-04-07] MEDS: REYATAZ 300 MG PO SCH (09:11)
[2020-04-07] MEDS: NORVIR 100 MG PO SCH (09:11)
[2020-04-07] MEDS: LAMIVUDINE PO SCH (09:12)
[2020-04-07] MEDS: ABACAVIR PO SCH (09:12)
[2020-04-07] MEDS: ENOXAPARIN 30MG/0.3ML SYR SUBCUT SCH (09:13)
[2020-04-07] MEDS: SODIUM BICARBONATE 650 MG TABLET PO SCH ×3 (09:22→17:05)
[2020-04-07 12:00] VITALS: BP 107/67
[2020-04-07 16:00] VITALS: BP 112/81
[2020-04-07] MEDS: ATOVAQUONE 750 MG/5 ML ORAL.SUSP PO SCH (17:05)
[2020-04-07 20:14] VITALS: BP 113/76
[2020-04-08 00:09] VITALS: BP 113/74
[2020-04-08] MEDS: IPRATROPIUM/ALBUTEROL 0.5-3(2.5)MG/3ML NEB HHN SCH ×2 (03:14→09:15)
[2020-04-08 04:26] VITALS: BP 116/76
[2020-04-08 08:09] VITALS: BP 102/66
[2020-04-08] MEDS: SODIUM BICARBONATE 650 MG TABLET PO SCH ×2 (08:59→13:00)
[2020-04-08] MEDS: PANTOPRAZOLE SODIUM 40 MG/VIAL IV SCH (08:59)
[2020-04-08] MEDS: ENOXAPARIN 30MG/0.3ML SYR SUBCUT SCH (09:00)
[2020-04-08] MEDS: METHADONE HCL 10MG TABLET PO SCH (09:00)
[2020-04-08] MEDS: TIVICAY (DOLUTEGRAVIR) 50MG TABLET PO SCH (09:01)
[2020-04-08] MEDS: NORVIR 100 MG PO SCH (09:01)
[2020-04-08] MEDS: LAMIVUDINE PO SCH (09:02)
[2020-04-08] MEDS: ABACAVIR PO SCH (09:02)
[2020-04-08] MEDS: REYATAZ 300 MG PO SCH (09:02)
[2020-04-08 11:57] VITALS: BP 100/61
[2020-04-08 13:16] VITALS: BP 100/61
[2020-04-08] MEDS: SODIUM CHLORIDE 0.9% INJ 3ML FLUSH IVF SCH ×2 (14:00)
== END 2020-04-08 15:05 | disposition home or self-care (01) | DRG 812 ==
LOC: ER 07:27 → CANBEDREQ 12:02 → MICUSO 13:17 → CVICU 04-01 11:45 → 6WST 04-05 17:20
PROVIDERS: ADMIT Internal Medicine; ATTEND Internal Medicine
PROC: 5A1955Z Respiratory Ventilation, Greater than 96 Consecutive Hours (ICD-10-PCS; principal; 2020-03-31)
PROC: 0BH17EZ Insertion of Endotracheal Airway into Trachea, Via Natural or Artificial Opening (ICD-10-PCS; 2020-03-31)
PROC: 02HV33Z Insertion of Infusion Device into Superior Vena Cava, Percutaneous Approach (ICD-10-PCS; 2020-04-02)
PROC: B548ZZA Ultrasonography of Superior Vena Cava, Guidance (ICD-10-PCS; 2020-04-02)
DX: T43.621A Poisoning by amphetamines, accidental (unintentional), initial encounter (principal); J96.00 Acute respiratory failure, unspecified whether with hypoxia or hypercapnia; I21.4 Non-ST elevation (NSTEMI) myocardial infarction; J69.0 Pneumonitis due to inhalation of food and vomit; G93.41 Metabolic encephalopathy; E46 Unspecified protein-calorie malnutrition; B20 Human immunodeficiency virus [HIV] disease; E83.51 Hypocalcemia; I07.1 Rheumatic tricuspid insufficiency; I50.20 Unspecified systolic (congestive) heart failure; I11.0 Hypertensive heart disease with heart failure; E87.2 Acidosis; F15.10 Other stimulant abuse, uncomplicated; F11.20 Opioid dependence, uncomplicated; N39.0 Urinary tract infection, site not specified; N18.4 Chronic kidney disease, stage 4 (severe); R74.8 Abnormal levels of other serum enzymes; N17.9 Acute kidney failure, unspecified; N28.1 Cyst of kidney, acquired; G40.909 Epilepsy, unspecified, not intractable, without status epilepticus; J70.4 Drug-induced interstitial lung disorders, unspecified; E87.5 Hyperkalemia; I27.20 Pulmonary hypertension, unspecified; I87.8 Other specified disorders of veins; T37.5X6A Underdosing of antiviral drugs, initial encounter; Y92.89 Other specified places as the place of occurrence of the external cause; Z22.322 Carrier or suspected carrier of Methicillin resistant Staphylococcus aureus; Z68.25 Body mass index [BMI] 25.0-25.9, adult; Z03.818 Encounter for observation for suspected exposure to other biological agents ruled out; Z78.1 Physical restraint status
CPT/HCPCS: 36415; 36600; 71045; 76770; 76937; 80048; 80053; 80061; 80305; 81003; 82375; 82550; 82553; 82805; 82962; 83036; 83605; 83615; 83880; 83970; 84100; 84439; 84443; 84484; 85025; 85379; 86803; 87070; 87340; 92610; 93005; 93306; 93923; 94003; 94640; 97116; 97162; 99291; C1725; C9113; J0456; J0692; J0696; J1650; J2060; J2185; J2250; J3010; J3490; J7030; J7050; J7060; U0003-CS

== ENCOUNTER 2020-04-17 03:06 | Inpatient (IN) | payer OTHER ==
[2020-04-17] VITALS (30 sets, daily range): BP systolic 102–140; BP diastolic 72–107
[~2020-04-17] VITALS: Ht 165.1 cm; Wt 64.4 kg
[~2020-04-17 03:06] MED LIST changes: +ATAZ300C MT; +DOLU50TA MT; -METH5SOL PO
[2020-04-17] MEDS ORDERED: CLONIDINE 0.2MG TABLET PO ONE (04:00)
[2020-04-17 05:35] LABS: BASOPHILS % 0.1 % (0.0-2.0); EOSINOPHILS % 0.1 % (0.0-5.0); HEMATOCRIT. 29.4 % (36.0-48.0); HEMOGLOBIN. 9.6 g/dL (12.0-16.0); LYMPHOCYTES % 14.8 % (20.0-50.0); MEAN CORPUSCULAR VOLUME 103.9 fL (81.0-99.0); MEAN PLATELET VOLUME 10.5 fl (7.4-10.4); MONOCYTES % 7.9 % (2.0-8.0); NEUTROPHILS % 77.1 % (40.0-76.0); PLATELET 120 x1000/uL (130-400); RED BLOOD CELL COUNT 2.83 mill/uL (4.2-5.4); RED CELL DISTRIBUTION WIDTH 20.5 % (11.6-14.6)
[2020-04-17 05:43] LABS: CHLORIDE 113 mEq/L (98-107)
[2020-04-17] MEDS ORDERED: SODIUM CHLORIDE 0.9% 1,000 ML IV ONE (06:01)
[2020-04-17] MEDS ORDERED: VANCOMYCIN 1 G PREMIX 200 ML IV ONE (06:15)
[2020-04-17] MEDS ORDERED: PIPERACILLIN/TAZ 3.375G PREMIX 50 ML IV ONE (06:15)
[2020-04-17] MEDS ORDERED: METH-611 PO (11:26)
[2020-04-17] MEDS ORDERED: DEXT 5%/0.45% NACL 1000ML 1,000 ML IV SCH (12:32)
[2020-04-17] MEDS ORDERED: ENOXAPARIN 40MG/0.4ML SYR SUBCUT SCH (12:45)
[2020-04-17] MEDS ORDERED: ACETAMINOPHEN 325MG TABLET PO PRN (12:45)
[2020-04-17] MEDS ORDERED: ONDANSETRON HCL 4MG/2ML INJ IV PRN (12:45)
[2020-04-17] MEDS ORDERED: ENOXAPARIN 30MG/0.3ML SYR SUBCUT SCH (13:00)
[2020-04-17] MEDS: CEFTRIAXONE 1 G PREMIX 50 ML IV SCH (14:05)
[2020-04-17] MEDS: AZITHROMYCIN 500 MG in DEXT 5% WATER 250 ML IV SCH (14:05)
[2020-04-17] MEDS ORDERED: PROPOFOL 10MG/ML 100ML 100 ML IV NR (16:45)
[2020-04-17] MEDS ORDERED: ENOXAPARIN 30MG/0.3ML SYR SUBCUT NR (17:15)
[2020-04-17 17:33] LABS: BG CARBOXYHEMOGLOBIN 0.3 % (0.5-1.5); BG SAMPLE SITE RIGHT RADIAL
[2020-04-17 17:35] LABS: BG TIDAL VOLUME(mL) 500 mL; BG VENT RATE 16 set
[2020-04-17 18:09] LABS: BG FRACTION INSPIRED OXYGEN 100
[2020-04-17 18:10] LABS: BG PCO2 34.7 mmHg (35.0-45.0)
[2020-04-17 18:11] LABS: BG BASE EXCESS -22.4 mmol/L (-2.0-2.0); BG OXYGEN SATURATION 93.5 % (92.0-98.5); BG PO2 99.4 mmHg (75.0-100.0); BG TOTAL HEMOGLOBIN 10.1 g/dL (12.0-18.0)
[2020-04-17 18:12] LABS: BG OXYHEMOGLOBIN 92.8 % (94.0-97.0)
[2020-04-17] MEDS ORDERED: NACL IV SCH (18:15)
[2020-04-17] MEDS ORDERED: DEXT IV SCH (18:15)
[2020-04-17] MEDS ORDERED: SODIUM BICARBONATE IV SCH (18:15)
[2020-04-17 18:19] LABS: BG VENT MODE AC
[2020-04-17 18:20] LABS: BG DEOXYHEMOGLOBIN 6.5 % (0.0-5.0); BG METHEMOGLOBIN 0.4 % (0.0-1.5)
[2020-04-17] MEDS: MIDAZOLAM HCL 100 MG in DEXT 5% WATER 80 ML IV PRN (19:00)
[2020-04-17] MEDS: FENTANYL CITRATE/PF 1,000 MCG in SODIUM CHLORIDE 0.9% 80 ML IV PRN (19:00)
[2020-04-17 19:41] LABS: HEMATOCRIT. 26.6 % (36.0-48.0); HEMOGLOBIN. 8.8 g/dL (12.0-16.0); MEAN CORPUSCULAR HEMOGLOBIN 34.4 pg (28.0-32.0); MEAN CORPUSCULAR VOLUME 104.1 fL (81.0-99.0); MEAN PLATELET VOLUME 10.6 fl (7.4-10.4); PLATELET 88 x1000/uL (130-400); RED BLOOD CELL COUNT 2.56 mill/uL (4.2-5.4); RED CELL DISTRIBUTION WIDTH 19.6 % (11.6-14.6)
[2020-04-17 19:46] LABS: CHLORIDE 112 mEq/L (98-107)
[2020-04-17 19:58] LABS: D-DIMER 20.03 mg/L FEU (<0.50); INR 1.4; PROTHROMBIN TIME 14.1 sec (9.6-11.0)
[2020-04-17 20:04] LABS: PLATELET ESTIMATE DECREASED
[2020-04-17] MEDS: SODIUM BICARBONATE 100 MEQ in DEXT 5%/0.9% NACL 1,000 ML IV SCH (21:30)
[2020-04-17 23:43] LABS: BG BASE EXCESS -9.2 mmol/L (-2.0-2.0); BG CARBOXYHEMOGLOBIN 0.3 % (0.5-1.5); BG DEOXYHEMOGLOBIN 0.4 % (0.0-5.0); BG FRACTION INSPIRED OXYGEN 100; BG HCO3 ACT 13.7 mmol/L (22.0-26.0); BG METHEMOGLOBIN 0.1 % (0.0-1.5); BG OXYGEN SATURATION 99.6 % (92.0-98.5); BG OXYHEMOGLOBIN 99.2 % (94.0-97.0); BG PCO2 21.2 mmHg (35.0-45.0); BG PH 7.428 (7.350-7.450); BG PIP 32 cmH2O; BG PO2 524.1 mmHg (75.0-100.0); BG SAMPLE SITE RIGHT RADIAL; BG TIDAL VOLUME(mL) 600 mL; BG TOTAL HEMOGLOBIN 9.2 g/dL (12.0-18.0); BG VENT MODE VENT - A/C; BG VENT RATE 24 set
[2020-04-17 23:55] LABS: UCG SCREEN NEGATIVE
[2020-04-17 23:57] LABS: *BARBITURATES SCREEN URINE NEGATIVE (NEGATIVE); *COCAINE SCREEN URINE NEGATIVE (NEGATIVE)
[2020-04-17 23:58] LABS: CANNABINOID URINE SCREEN NEGATIVE (NEGATIVE); OPIATES URINE SCREEN NEGATIVE (NEGATIVE); PHENCYCLIDINE URINE SCREEN NEGATIVE (NEGATIVE)
[2020-04-18] VITALS (70 sets, daily range): BP systolic 96–132; BP diastolic 39–107
[2020-04-18] LABS: *AMPHETAMINES SCREEN URINE PRESUMTIVE POSITIVE (NEGATIVE); *BENZODIAZEPINES SCREEN URINE PRESUMTIVE POSITIVE (NEGATIVE); METHADONE URINE SCREEN PRESUMTIVE POSITIVE (NEGATIVE)
[2020-04-18 05:29] LABS: BASOPHILS % 0.4 % (0.0-2.0); EOSINOPHILS % 0.4 % (0.0-5.0); HEMATOCRIT. 27.1 % (36.0-48.0); HEMOGLOBIN. 8.9 g/dL (12.0-16.0); LYMPHOCYTES % 8.6 % (20.0-50.0); MEAN CORPUSCULAR HEMOGLOBIN 33.6 pg (28.0-32.0); MEAN CORPUSCULAR VOLUME 102.6 fL (81.0-99.0); MEAN PLATELET VOLUME 11.3 fl (7.4-10.4); MONOCYTES % 12.2 % (2.0-8.0); NEUTROPHILS % 78.4 % (40.0-76.0); PLATELET 75 x1000/uL (130-400); RED BLOOD CELL COUNT 2.64 mill/uL (4.2-5.4); RED CELL DISTRIBUTION WIDTH 19.6 % (11.6-14.6)
[2020-04-18 09:20] LABS: BG BASE EXCESS -7.8 mmol/L (-2.0-2.0); BG CARBOXYHEMOGLOBIN 0.3 % (0.5-1.5); BG DEOXYHEMOGLOBIN 2.2 % (0.0-5.0); BG FRACTION INSPIRED OXYGEN 40; BG HCO3 ACT 15.9 mmol/L (22.0-26.0); BG METHEMOGLOBIN 1.8 % (0.0-1.5); BG OXYGEN SATURATION 97.8 % (92.0-98.5); BG OXYHEMOGLOBIN 95.7 % (94.0-97.0); BG PCO2 26.4 mmHg (35.0-45.0); BG PH 7.399 (7.350-7.450); BG PO2 139.1 mmHg (75.0-100.0); BG SAMPLE SITE RIGHT RADIAL; BG TIDAL VOLUME(mL) 500 mL; BG TOTAL HEMOGLOBIN 8.8 g/dL (12.0-18.0); BG VENT MODE VENT - A/C; BG VENT RATE 24 set
[2020-04-18] MEDS ORDERED: SODIUM POLYSTYRENE SULFONATE 15 G/60 ML BOT PO SCH (12:00)
[2020-04-18] MEDS: SODIUM BICARBONATE 100 MEQ in DEXT 5%/0.9% NACL 1,000 ML IV SCH ×2 (12:57→18:57)
[2020-04-18] MEDS: CEFTRIAXONE 1 G PREMIX 50 ML IV SCH (13:13)
[2020-04-18] MEDS: AZITHROMYCIN 500 MG in DEXT 5% WATER 250 ML IV SCH (14:30)
[2020-04-18] MEDS: FENTANYL CITRATE/PF 1,000 MCG in SODIUM CHLORIDE 0.9% 80 ML IV PRN (16:40)
[2020-04-18] MEDS ORDERED: ENOXAPARIN 60MG/0.6ML SYR SUBCUT SCH (18:00)
[2020-04-18] MEDS ORDERED: FUROSEMIDE 20MG/2ML VIAL IVP SCH (20:00)
[2020-04-18] MEDS: ATOVAQUONE 750MG/5ML PACKET PO SCH (21:22)
[2020-04-18] MEDS: CARVEDILOL 3.125 MG TABLET PO SCH (21:23)
[2020-04-19] VITALS (24 sets, daily range): BP systolic 103–131; BP diastolic 57–83
[2020-04-19] MEDS: SODIUM BICARBONATE 100 MEQ in DEXT 5%/0.9% NACL 1,000 ML IV SCH (04:13)
[2020-04-19] MEDS: MIDAZOLAM HCL 100 MG in DEXT 5% WATER 80 ML IV PRN (04:54)
[2020-04-19 05:56] LABS: HEMATOCRIT. 24.9 % (36.0-48.0); HEMOGLOBIN. 8.3 g/dL (12.0-16.0); MEAN CORPUSCULAR HEMOGLOBIN 33.3 pg (28.0-32.0); MEAN CORPUSCULAR VOLUME 100.2 fL (81.0-99.0); MEAN PLATELET VOLUME 10.1 fl (7.4-10.4); PLATELET 85 x1000/uL (130-400); RED BLOOD CELL COUNT 2.49 mill/uL (4.2-5.4); RED CELL DISTRIBUTION WIDTH 19.4 % (11.6-14.6)
[2020-04-19 06:06] LABS: CHLORIDE 120 mEq/L (98-107)
[2020-04-19] MEDS: FENTANYL CITRATE/PF 1,000 MCG in SODIUM CHLORIDE 0.9% 80 ML IV PRN (06:15)
[2020-04-19 09:23] LABS: PLATELET ESTIMATE DECREASED
[2020-04-19] MEDS ORDERED: POTASSIUM CHLORIDE 20MEQ TABLET SR PO NR (09:30)
[2020-04-19] MEDS: DEXT 5%/0.45% NACL 1000ML 1,000 ML IV SCH (09:42)
[2020-04-19] MEDS: CARVEDILOL 3.125 MG TABLET PO SCH ×2 (09:43→21:19)
[2020-04-19] MEDS: ATOVAQUONE 750MG/5ML PACKET PO SCH ×2 (10:42→19:04)
[2020-04-19 13:00] LABS: BG BASE EXCESS -2.8 mmol/L (-2.0-2.0); BG CARBOXYHEMOGLOBIN 0.3 % (0.5-1.5); BG DEOXYHEMOGLOBIN 2.5 % (0.0-5.0); BG FRACTION INSPIRED OXYGEN 30; BG HCO3 ACT 21.2 mmol/L (22.0-26.0); BG METHEMOGLOBIN 0.1 % (0.0-1.5); BG OXYGEN SATURATION 97.5 % (92.0-98.5); BG OXYHEMOGLOBIN 97.1 % (94.0-97.0); BG PCO2 33.2 mmHg (35.0-45.0); BG PH 7.423 (7.350-7.450); BG PO2 111.7 mmHg (75.0-100.0); BG PRESSURE SUPPORT 12; BG SAMPLE SITE RIGHT RADIAL; BG TOTAL HEMOGLOBIN 8.5 g/dL (12.0-18.0); BG VENT MODE MASK - CPAP
[2020-04-19] MEDS: CEFTRIAXONE 1 G PREMIX 50 ML IV SCH (14:35)
[2020-04-19] MEDS: AZITHROMYCIN 500 MG in DEXT 5% WATER 250 ML IV SCH (16:25)
[2020-04-20] VITALS (20 sets, daily range): BP systolic 111–145; BP diastolic 74–91
[2020-04-20] MEDS: DEXT 5%/0.45% NACL 1000ML 1,000 ML IV SCH ×3 (01:33→22:54)
[2020-04-20] MEDS: CARVEDILOL 3.125 MG TABLET PO SCH ×2 (08:49→21:23)
[2020-04-20] MEDS: ATOVAQUONE 750MG/5ML PACKET PO SCH ×2 (08:49→18:03)
[2020-04-20 10:33] LABS: HEMATOCRIT. 24.6 % (36.0-48.0); MEAN CORPUSCULAR HEMOGLOBIN 33.2 pg (28.0-32.0); MEAN CORPUSCULAR VOLUME 102.1 fL (81.0-99.0); MEAN PLATELET VOLUME 10.5 fl (7.4-10.4); PLATELET 70 x1000/uL (130-400); RED BLOOD CELL COUNT 2.41 mill/uL (4.2-5.4); RED CELL DISTRIBUTION WIDTH 20.3 % (11.6-14.6)
[2020-04-20] MEDS ORDERED: FUROSEMIDE 20MG/2ML VIAL IVP NR (11:30)
[2020-04-20 12:57] LABS: PLATELET ESTIMATE DECREASED
[2020-04-20] MEDS: CEFTRIAXONE 1 G PREMIX 50 ML IV SCH (14:44)
[2020-04-20] MEDS: AZITHROMYCIN 500 MG in DEXT 5% WATER 250 ML IV SCH (15:50)
[2020-04-20] MEDS ORDERED: METHADONE HCL 10MG TABLET PO SCH (19:15)
[2020-04-21] VITALS (13 sets, daily range): BP systolic 94–130; BP diastolic 61–97
[2020-04-21] MEDS: ATOVAQUONE 750MG/5ML PACKET PO SCH ×2 (07:55→17:46)
[2020-04-21] MEDS: CARVEDILOL 3.125 MG TABLET PO SCH ×2 (08:59→21:00)
[2020-04-21] MEDS: METHADONE HCL 10MG TABLET PO SCH (10:35)
[2020-04-21 11:11] LABS: HEMATOCRIT. 27.6 % (36.0-48.0); MEAN CORPUSCULAR HEMOGLOBIN 32.7 pg (28.0-32.0); MEAN CORPUSCULAR VOLUME 100.6 fL (81.0-99.0); PLATELET 78 x1000/uL (130-400); RED BLOOD CELL COUNT 2.75 mill/uL (4.2-5.4); RED CELL DISTRIBUTION WIDTH 19.4 % (11.6-14.6)
[2020-04-21 11:37] LABS: CHLORIDE 113 mEq/L (98-107)
[2020-04-21] MEDS ORDERED: NON FORMULARY PATIENT HOME MED XX SCH ×2 (12:00)
[2020-04-21] MEDS ORDERED: ATAZANAVIR SULFATE 150MG CAPSULE PO SCH (12:00)
[2020-04-21] MEDS ORDERED: RITONAVIR 100 MG TABLET PO SCH (13:30)
[2020-04-21 13:37] LABS: PLATELET ESTIMATE DECREASED
[2020-04-21] MEDS: AZITHROMYCIN 500 MG in DEXT 5% WATER 250 ML IV SCH (15:10)
[2020-04-21] MEDS: CEFTRIAXONE 1 G PREMIX 50 ML IV SCH (15:21)
[2020-04-21] MEDS: FUROSEMIDE 20MG/2ML VIAL IVP SCH (15:38)
[2020-04-22] VITALS (8 sets, daily range): BP systolic 116–137; BP diastolic 70–96
[2020-04-22] MEDS: ATOVAQUONE 750MG/5ML PACKET PO SCH (06:48)
[2020-04-22] MEDS ORDERED: RITONAVIR 100 MG TABLET PO SCH (09:00)
[2020-04-22] MEDS ORDERED: AZITHROMYCIN 500 MG TABLET PO SCH (09:00)
[2020-04-22] MEDS: CARVEDILOL 3.125 MG TABLET PO SCH (10:42)
[2020-04-22] MEDS: METHADONE HCL 10MG TABLET PO SCH (10:43)
[2020-04-22] MEDS: FUROSEMIDE 20MG/2ML VIAL IVP SCH (10:44)
[2020-04-22] MEDS: CEFTRIAXONE 1 G PREMIX 50 ML IV SCH (14:00)
== END 2020-04-22 13:55 | disposition home or self-care (01) | DRG 890 ==
LOC: ER 03:06 → 7WST 05:34 → ENRESERV 08:03 → MICUSO 16:17 → CVICU 04-18 15:00 → 3WST 04-20 17:03
PROVIDERS: ADMIT Internal Medicine; ATTEND Internal Medicine
PROC: 0BH17EZ Insertion of Endotracheal Airway into Trachea, Via Natural or Artificial Opening (ICD-10-PCS; principal; 2020-04-17)
PROC: 5A1945Z Respiratory Ventilation, 24-96 Consecutive Hours (ICD-10-PCS; 2020-04-17)
DX: A41.9 Sepsis, unspecified organism (principal); J96.01 Acute respiratory failure with hypoxia; I50.23 Acute on chronic systolic (congestive) heart failure; D64.9 Anemia, unspecified; J18.9 Pneumonia, unspecified organism; N17.9 Acute kidney failure, unspecified; N18.9 Chronic kidney disease, unspecified; I42.9 Cardiomyopathy, unspecified; I27.20 Pulmonary hypertension, unspecified; D69.6 Thrombocytopenia, unspecified; E43 Unspecified severe protein-calorie malnutrition; B20 Human immunodeficiency virus [HIV] disease; E87.2 Acidosis; G40.909 Epilepsy, unspecified, not intractable, without status epilepticus; F15.10 Other stimulant abuse, uncomplicated; R74.0 Nonspecific elevation of levels of transaminase and lactic acid dehydrogenase [LDH]; D72.819 Decreased white blood cell count, unspecified; Z20.828 Contact with and (suspected) exposure to other viral communicable diseases; I13.0 Hypertensive heart and chronic kidney disease with heart failure and stage 1 through stage 4 chronic kidney disease, or unspecified chronic kidney disease; Z79.899 Other long term (current) drug therapy; Z68.23 Body mass index [BMI] 23.0-23.9, adult
CPT/HCPCS: 31500; 36415; 36600; 71045; 76604; 78580; 80048; 80053; 80305; 81025; 82375; 82805; 82962; 83605; 83880; 84145; 84478; 84484; 85025; 85379; 92610; 93005; 94002; 94003; 97162; 97530; 99285; J0456; J0696; J1650; J1940; J2250; J2543; J2704; J3010; J3370; J3490; J7030; J7042; J7050; J7060; U0003-CS